=== PATIENT | female | born 1975 | race Caucasian/White ===

== ENCOUNTER → 2016-12-26 | Outpatient (CLI) | payer BC ==
[2016-12-26 11:54] VITALS: BP 127/79
== END ==
LOC: MHUC 10:00
PROVIDERS: ATTEND Physician Assistant
DX: R05 Cough (principal)
CPT/HCPCS: 99213

== ENCOUNTER → 2017-01-26 | Outpatient (CLI) | payer BC ==
[~2017-01-26] MED LIST: AZIT250T81 PO; BENZ-22 PO; TRIA80CR3 TOP
[2017-01-26 14:54] VITALS: BP 127/85
--- NOTE | 2017-01-26 14:54 | Urgent Care T Sheet Gen (E) ---
Intake General Temperature (Fahrenheit): 99.2 Pulse: 95 Blood Pressure Systolic: 127 Blood Pressure Diastolic: 85 Respirations: 18 SPO2: 96 Description of Symptoms Patient presents with a red, itchy spot along the R bhat. First noticed about 10 days ago. Doesn't recall getting bit by anything or coming in contact with poison pieter or poison oak. No redness or drainage to the area. No fever. Been using OTC hydrocortisone cream which helped some but doesn't completely alleviate the itch. History of Present Illness Home Meds Active Scripts Azithromycin (Zithromax Z-Kodi)6 Tab/Pkt Lajuuf627 Mg PO SEE INSTRUCTIONS #6 TAB Ref 0 Day One: Take 2 tablets by mouth Days Two-Five: Take 1 tablet by mouth Prov:QUAN COPE 12/26/16 Benzonatate (Tessalon Perles)100 Mg [id number] Mg PO TID PRN COUGH #30 CAP Prov:QUAN COPE 12/26/16 Respiratory Constitutional Symptoms: No syptoms reported Skin: Change in color Lesions All Other Systems Reviewed Remaining Systems: All other systems reviewed with negative findings Physical Exam Physical Exam General Appearance: WD/WN No apparent distress Skin Exam: Rash (examination of the R anterior lower leg reveals redness and several papules. no pattern to the rash. blanchable. no warmth or drainage. rash doesn't appear infected but scratching is noted.) Departure Urgent Care Impression Impression: Primary Impression: Dermatitis Departure Disposition: 01 HOME OR SELF-CARE Condition: Stable Referrals: NEHA DEVINE MD (PCP) Additional Instructions: I have started her Triamcinolone ointment. Hoping the more potent steroid will alleviate the rash. Watch for infection. If redness, warmth or drainage develops, she is to return for recheck She may take Claritin or Zyrtec daily for itch. Benadryl as night if the itch keeps her awake. Patient understands DC instructions. All questions were answered. Scripts Triamcinolone Acetonide (Kenalog 0.1% Cream)80 Gm Cream..g.1 Gm TOP BID PRN ITCHING AND RASH #1 TUBE Prov:QUAN COPE 01/26/17 End of report . QUAN COPE Jan 26, 2017 14:54
== END ==
LOC: MHUC 13:47
PROVIDERS: ATTEND Physician Assistant
DX: L30.8 Other specified dermatitis (principal)
CPT/HCPCS: 99212